=== PATIENT | male | born 1970 | race Caucasian/White ===

== ENCOUNTER 2018-04-17 06:20 | Day surgery (SDC) | payer OTHER ==
[2018-04-17] MEDS ORDERED: ALBUTEROL 3 ML DEYVIAL ONE (06:29)
[2018-04-17] MEDS ORDERED: EPINEPHrine 1 MG/ML INJ ONE ×2 (06:29→07:04)
[2018-04-17] MEDS ORDERED: LIDOCAINE HCL 4% TOPICAL SOLN 50ML ONE (06:30)
[2018-04-17] MEDS ORDERED: LIDOCAINE 2% JELLY 5 ML TUBE ONE (06:30)
[2018-04-17] MEDS ORDERED: LIDOCAINE 1% 300 MG/30 ML SDV ONE (06:30)
[2018-04-17] MEDS ORDERED: NS 500 ML IV ONE (06:56)
[2018-04-17] MEDS ORDERED: ALBUTEROL 3 ML DEYVIAL IH ONE (06:56)
--- NOTE | 2018-04-17 07:14 | PDHPUP ---
History & Physical Update H&P update statement: This history and physical update is based on an assessment of the patient which was completed after admission or registration (within 24 hours), but prior to the surgery/procedure. H&P update: H&P reviewed & patient examined, no change in patient's condition since H&P completed
--- NOTE | 2018-04-17 07:15 | PDPROPOC ---
Sedation Plan of Care Sedation Plan of Care: vital signs stable, mental status noted, patient educated of risks, benefits, alternatives, patient can tolerate sedation ASA Classification: ASA 2 Planned drugs: fentanyl, midazolam Mallampati Score: Class 2 Mallampati Reference Image:
[2018-04-17] MEDS ORDERED: MIDAZOLAM 2 MG/2 ML VIAL ONE (07:23)
[2018-04-17] MEDS ORDERED: fentaNYL 100 MCG/2 ML INJ ONE (07:24)
--- NOTE | 2018-04-17 09:23 | BVPULMO ---
[facility]- Pulmonology Patient Name: Arash Mao Procedure Date: 04/17/2018 7:06 AM Patient Type: Outpatient Attending MD/ER Physician: Ronan Logan MD Procedure: Bronchoscopy Indications: Nodule of lung, Diagnostic bronchoalveolar lavage Providers: Ronan Logan MD Medicines: Lidocaine 1% applied to cords 2 mL, Lidocaine 1% applied to the tracheobronchia l tree 5 mL, Fentanyl 75 mcg IV, Midazolam 3 mg mg IV Complications: No immediate complications Procedure: After informed consent, a time out was performed. N95 masks were worn, and the procedure was done in a negative pressure room. The patient was given appropria te topical anesthesia and intravenous sedation. The fiberopic bronchoscope was pas sed via a bite block orally into the larynx and subsequently into the lower trachea bronchial tree. Throughout the procedure, the patient's blood pressure, pulse, and oxygen saturations were monitored continuously. The Bronchoscope (Video) was introduced through the mouth and advanced to the tracheobronchial tree of both lungs. The procedure was accomplished without difficulty. The patient tolerated the procedure well. Findings: Erythema was found throughout the tracheobronchial tree. Transbronchial biopsies of a lesion were performed in the anterior segment of t he left upper lobe using forceps. The procedure was guided by fluoroscopy. Transbronchial biopsy technique was selected because the sampling site was not visible endoscopically. Six biopsy passes were performed. Six biopsy samples we re obtained. Bronchoalveolar lavage was performed in the FREDDIE anterior segment (B3) of the gela ng. 120 mL of fluid were instilled. 100 mL were returned. The return was cloudy. Th ere were no mucoid plugs in the return fluid. Multiple specimens were obtained, and each sent for analysis. Washings were obtained in the left mainstem bronchus and in the anterior segmen t of the left upper lobe. The return was blood-tinged. Multiple specimens were obtai nishant, and each sent for analysis. Post Op Diagnosis: - Nodule of lung - Bronchoalveolar lavage - Transbronchial lung biopsies were performed. - Bronchoalveolar lavage was performed. - Washings were obtained. Estimated Blood Loss: Estimated blood loss: none. Recommendation: - The patient will be observed post-procedure, until all discharge criteria are met. - Await BAL, biopsy and washing results. - The patient was advised to call or return to the clinic if there are signs or symptoms suggesting a complication/adverse reaction from the procedure. Ronan Logan MD Ronan Logan MD 04/17/2018 9:23:01 AM This report has been signed electronicallyRonan Lgoan MD Number of Addenda: 0 Note Initiated On: 04/17/2018 7:06 AM [email or web address]
[2018-04-17 09:29] VITALS: BP 106/75
== END 2018-04-17 09:50 | disposition home or self-care (01) ==
LOC: FSGY 06:20
PROVIDERS: ATTEND Internal Medicine Critical Care Medicine
PROC: BB13ZZZ Fluoroscopy of Left Lung (ICD-10-PCS; principal; 2018-04-17 07:30)
PROC: 0BBG8ZX Excision of Left Upper Lung Lobe, Via Natural or Artificial Opening Endoscopic, Diagnostic (ICD-10-PCS; principal; 2018-04-17 07:30)
PROC: 0B9G8ZX Drainage of Left Upper Lung Lobe, Via Natural or Artificial Opening Endoscopic, Diagnostic (ICD-10-PCS; principal; 2018-04-17 07:30)
DX: R91.1 Solitary pulmonary nodule (principal); R91.8 Other nonspecific abnormal finding of lung field; F17.210 Nicotine dependence, cigarettes, uncomplicated; M06.9 Rheumatoid arthritis, unspecified; Z80.51 Family history of malignant neoplasm of kidney
CPT/HCPCS: J0171; J2250; J3010; J7613